=== PATIENT | female | born 1985 | race Caucasian/White ===

== ENCOUNTER 2018-03-03 04:56 | Inpatient (IN) ==
[2018-03-03] MEDS: RINGER'S SOLUTION,LACTATED 1,000 ML IV PRN ×4 (05:18→09:05)
[2018-03-03] MEDS ORDERED: OXYTOCIN 20 UNITS in RINGER'S SOLUTION,LACTATED 1,000 ML IV ONE (05:26)
[2018-03-03] MEDS ORDERED: ceFAZolin SODIUM/DEXTROSE,ISO 2 GM/50 ML BAG IV ONE (05:26)
[2018-03-03 06:13] LABS: Mean Corpuscular Hgb Conc 33.3 g/dl (32-36); Mean Platelet Volume 9.8 fl (8-12.5); Neutrophil # 6.6 K/mm3 (1.3-6.0); Neutrophil % 67.5 % (42-75.0); Platelet Count 193 K/mm3 (150-450); Red Blood Count 3.55 M/mm3 (4.2-5.4); Red Cell Distribution Width 14.2 % (11.5-14.0); White Blood Count 9.8 K/mm3 (4.0-10.5)
[2018-03-03 07:39] LABS: Cocaine Ur Negative (NEGATIVE); Urine Barbiturate Negative (NEGATIVE); Urine Benzodiazepines Negative (NEGATIVE); Urine Opiates Negative (NEGATIVE); Urine PCP Negative (NEGATIVE); Urine THC Negative (NEGATIVE)
[2018-03-03] MEDS ORDERED: SENNOSIDES 8.6 MG TABLET PO PRN (09:31)
[2018-03-03] MEDS ORDERED: oxyCODONE HCL/ACETAMINOPHEN 1 TAB TABLET PO PRN (09:31)
[2018-03-03] MEDS ORDERED: SIMETHICONE 80 MG TAB.CHEW PO PRN (09:31)
[2018-03-03] MEDS ORDERED: ONDANSETRON HCL/PF 2 MG/ML VIAL IV PRN (09:31)
[2018-03-03] MEDS ORDERED: BISACODYL 10 MG SUPP.RECT RC PRN (09:31)
--- NOTE | 2018-03-03 09:33 | OR ---
Operative Report - Dictated Report Narrative: Indication: 32-year-old 2 para 1 at 39-1/7 weeks declines ; here for repeat section status: Planned Pre Operative Diagnosis: 39-1/7 week intrauterine , prior section Post Operative Diagnosis: Same. Procedure: Repeat low transverse section. Surgeon: Nain Ayala DO Redye Hand: OR Staff Anesthesia: Spinal, TAP block Estimated Blood Loss: 300 mL Urine Output: 500 mL clear urine Fluids Replacement: 1800 mL of crystalloid Drains: Newby to gravity Surgical Complications: None Specimens: Placenta to freezer Findings: Female in cephalic presentation born at 0837 on 03/03/2016 with Apgars 9 and 9, weighing 3250 g. Normal uterus, tubes, ovaries Technique: The patient was taken to the operating room and placed in dorsal supine position with a left lateral tilt. After adequate spinal anesthesia, newby catheter inserted, SCDs placed, and 2 g of Ancef given preoperatively, the abdominal cavity was entered using sharp and blunt dissection. Two rolled laps were placed in the pericolic gutters on either side of the uterus. A transverse incision was made in the lower uterine segment and extended laterally and upwardly with digital traction. Clear fluid was noted upon amniotomy. The infant was delivered easily. The cord was clamped and cut and was handed off to awaiting night supervisor. The placenta was allowed to deliver spontaneously. The uterus was cleared of clot and debris. Uterine incision was closed with 0 Vicryl using a running stitch. A second imbricating layer was placed. Excellent hemostasis was noted. The rolled laps were removed from the abdominal cavitiy. The peritoneum was closed with a running 3- 0 Monocryl. The same suture was used to approximate the rectus and pyramidalis muscles. The fascia was closed with a running 0 Vicryl. The subcutaneous layer was closed with a running 3-0 Monocryl. The same suture was used to approximate the subdermal layer. The skin was closed with a running 4-0 Monocryl and Dermabond. Sponge, lap, needle, and instrument count were correct x 2. Disposition: To post anesthesia care unit in good condition
--- NOTE | 2018-03-03 09:49 | OR ---
Anesthesia Procedure Note - Anesthesia Procedure Note Narrative: Vital Signs - Last Taken Temp 36.9 C 03/03/18 09:40 Pulse 82 03/03/18 09:40 Resp 20 03/03/18 09:40 BP 117/59 03/03/18 09:40 Pulse Ox 98 03/03/18 09:40 O2 Oxygen Delivery Method Room Air 03/03/18 09:46 ANESTHESIA PROCEDURE NOTE Date of procedure: 03/03/2018. Time of procedure: 06 27. Performed by: Segundo Mullen CRNA Drafting Engineer: Mahnaz Denise RN . Preprocedure diagnosis: Status post surgery and section. Desire for postoperative analgesia.. Post procedure diagnosis: Same. Procedure: Bilateral ultrasound-guided tap block Indications: Postoperative analgesia. Findings: Patient placed in a supine position in the PACU. Lateral abdominal wall prepped with ChloraPrep bilaterally. Ultrasound utilized to identify the fascial layer between internal oblique and transabdominal muscle on patient's right side. 20-gauge four-inch Stimuplex regional block needle was advanced under ultrasound guidance until tip of needle was located just distal to the fascial layer. 20 mL 0.25% Marcaine with epinephrine 1 200,000 was injected. Adequate spread of local anesthesia was noted. Procedure was then repeated on patient's left side. Regional block needle was removed intact. EBL: Minimal. Fluids: N/A. Specimen: N/A. Post procedure condition: The patient tolerated the procedure well. No complications were noted. Thank you for this consultation Segundo Mullen CRNA
[2018-03-03] MEDS: oxyCODONE HCL/ACETAMINOPHEN 1 TAB TABLET PO PRN ×4 (10:16→22:17)
[2018-03-03] MEDS: IBUPROFEN 800 MG TABLET PO PRN ×2 (11:21→17:13)
[2018-03-03] MEDS: DOCUSATE SODIUM 100 MG CAPSULE PO SCH ×2 (11:52→20:55)
[2018-03-03] MEDS: ENOXAPARIN SODIUM 40 MG/0.4 ML SYRG SC SCH (17:12)
[2018-03-04] MEDS: oxyCODONE HCL/ACETAMINOPHEN 1 TAB TABLET PO PRN ×4 (05:13→20:24)
[2018-03-04] MEDS: DOCUSATE SODIUM 100 MG CAPSULE PO SCH ×2 (09:36→20:24)
[2018-03-04] MEDS: IBUPROFEN 800 MG TABLET PO PRN ×2 (09:38→15:07)
[2018-03-04] MEDS: ENOXAPARIN SODIUM 40 MG/0.4 ML SYRG SC SCH (17:16)
--- NOTE | 2018-03-04 18:33 | PN ---
Subjective - Date and Time Seen Date: 03/04/18 Time: 18:33 Objective - Vitals Vitals: Last Vital Signs Temp 36.6 C 03/04/18 17:00 Pulse 69 03/04/18 17:00 Resp 20 03/04/18 17:00 BP 121/66 03/04/18 17:00 Pulse Ox 99 03/04/18 17:00 Patient denies complaints. Tolerating regular diet. Ambulating without difficulty. Pain well controlled. Lochia wnl. Abdomen - soft, appropriately tender Incision - clean, dry, intact Uterus - firm, at umbilicus -1 No calf tenderness Impression: Post op day #1 s/p repeat section. Plan: Continue routine post-operative/ care Cauti Physician Documentation - Urinary Catheter Management Urethral ([place]) Date of Insertion: 03/03/18 Time of Insertion: 09:00 Date of Removal: 03/03/18 Time of Removal: 21:00
[2018-03-05] MEDS: oxyCODONE HCL/ACETAMINOPHEN 1 TAB TABLET PO PRN (06:31)
[2018-03-05] MEDS: IBUPROFEN 800 MG TABLET PO PRN ×2 (06:31→16:49)
--- NOTE | 2018-03-05 08:37 | PN ---
Subjective - Date and Time Seen Date: 03/05/18 Time: 08:36 Objective - Vitals Vitals: Last Vital Signs Temp 36.8 C 03/05/18 00:42 Pulse 75 03/05/18 00:42 Resp 18 03/05/18 00:42 BP 99/56 03/05/18 00:42 Pulse Ox 95 03/05/18 00:42 Patient denies complaints. Ambulating well. Tolerating regular diet. Pain well controlled. Lochia wnl. Abdomen - soft, appropriately tender Incision - clean, dry, intact Uterus - firm, at umbilicus -2 No calf tenderness Impression: Post op day #2 s/p repeat section. Patient desiring early discharge. Plan: Continue routine post-operative/ care. If patient is able to ambulate today without pain medication we'll discharge later this afternoon. Routine discharge instructions given. Cauti Physician Documentation - Urinary Catheter Management Urethral ([place]) Date of Insertion: 03/03/18 Time of Insertion: 09:00 Date of Removal: 03/03/18 Time of Removal: 21:00
[2018-03-05] MEDS: DOCUSATE SODIUM 100 MG CAPSULE PO SCH (09:23)
[2018-03-05] MEDS: ENOXAPARIN SODIUM 40 MG/0.4 ML SYRG SC SCH (16:50)
[2018-03-05 20:40] VITALS: BP 132/87
== END 2018-03-05 17:20 | disposition home or self-care (01) | DRG 765 ==
LOC: MS 04:56
PROVIDERS: ADMIT Obstetrics & Gynecology; ATTEND Obstetrics & Gynecology
DX: O34.211 Maternal care for low transverse scar from previous cesarean delivery; O99.324 Drug use complicating childbirth; Z37.0 Single live birth; F12.90 Cannabis use, unspecified, uncomplicated; Z3A.39 39 weeks gestation of pregnancy
CPT/HCPCS: 36415; 59025; 80307; 85025; G0479